=== PATIENT | female | born 1945 | race American Indian/Alaskan Native ===

== ENCOUNTER 2016-10-02 17:44 | Emergency (ER) | payer MEDICARE ==
[2016-10-02] MEDS ORDERED: CATAPRES ONE (18:52)
[2016-10-02] MEDS ORDERED: CATAPRES PO ONE (18:53)
[2016-10-02 19:48] LABS: Eosinophils % (Auto) 0.6 % (0.0-4.3); Hematocrit 39.2 % (30.3-42.9); Hemoglobin 12.5 gm/dl (10.1-14.3); Mean Corpuscular HGB Conc 32 % (30-34); Mean Corpuscular Hemoglobin 26 pg (28-32); Mean Corpuscular Volume 83 fl (79-97); Platelet Count 211 K/mm3 (140-440); Red Blood Count 4.73 M/mm3 (3.65-5.03); Red Cell Distribution Width 15.7 % (13.2-15.2); White Blood Count 6.9 K/mm3 (4.5-11.0)
[2016-10-02 20:06] LABS: BUN/Creatinine Ratio 21.25; Blood Urea Nitrogen 17 mg/dL (7-17); Calcium 9.6 mg/dL (8.4-10.2); Carbon Dioxide 27 mmol/L (22-30); Chloride 103.8 mmol/L (98-107); Glucose 111 mg/dL (65-100); Sodium 143 mmol/L (137-145)
[2016-10-02 20:08] LABS: Anion Gap 16 mmol/L
[2016-10-03 03:24] LABS: Alanine Aminotransferase 8 units/L (7-56); Albumin 4.3 g/dL (3.9-5); Albumin/Globulin Ratio 1.3 %; Alkaline Phosphatase 84 units/L (35-129); Bilirubin,Total 0.6 mg/dL (0.1-1.2); Total Protein 7.7 g/dL (6.3-8.2)
--- NOTE | 2016-10-03 03:24 | XRay Report ---
FINAL REPORT EXAM: XR CHEST 1V AP HISTORY: htn, leg edema, r/o chf TECHNIQUE: Single portable frontal view of the chest PRIORS: None FINDINGS: Lungs are clear. Heart is moderately enlarged. Normal pulmonary vasculature. No effusion or pneumothorax. Extensive dilated bowel seen in the upper abdomen. IMPRESSION: 1. No acute finding. Moderate cardiomegaly. 2. Dilated bowel in the upper abdomen. Consider abdomen series for further evaluation.
[2016-10-03 03:25] LABS: Bilirubin,Direct < 0.2 mg/dL (0-0.2); Bilirubin,Indirect 0.4 mg/dL
[2016-10-03 03:31] VITALS: BP 160/101
[2016-10-03] MEDS ORDERED: ROCEPHIN/NS 1 GM/50 ML 0 GM/0 ML BAG IV ONE (04:09)
--- NOTE | 2016-10-03 04:23 | XRay Report ---
FINAL REPORT PROCEDURE: XR ABDOMEN 2V TECHNIQUE: Abdominal radiograph, single supine AP view. HISTORY: dialated bowel loops COMPARISON: No prior studies are available for comparison. FINDINGS: Bowel gas pattern:There is a large amount of stool in the colon indicating constipation. There are air-filled distended loops of large and small bowel but no specific evidence of mechanical obstruction is seen. There is no fecal impaction. There is no bowel wall thickening.. Masses or calcifications:None. Bony structures:No significant abnormality. Other:There is no free air.. There is distended colon between the right lobe of the liver and the right hemidiaphragm. This is a normal variation. IMPRESSION: Constipation and bowel distention.
--- NOTE | 2016-10-03 04:50 | Emergency Department Report ---
ED Extremity Problem HPI - General Chief complaint: High BP Stated complaint: HIGH BLOOD PRESSURE Time Seen by Provider: 10/03/16 03:46 Source: patient Mode of arrival: Wheelchair Limitations: No Limitations - History of Present Illness Initial comments: 71-year-old female with a past history of hypertension presents to the hospital complains of lower extremity edema times several months. Patient's edema is gradually increasing. Patient has history of hypertension but has not been on meds or seen a physician within 2-3 years. She denies headache, chest pain, blurred vision, shortness of breath, nausea, vomiting, abdominal pain, constipation, or diarrhea. Severity scale (0 -10): 0 - Related Data Previous Rx's Medication Instructions Recorded Last Taken Type Lactulose [Cephulac] 20 gm PO QDAY PRN #4 dose 10/03/16 Unknown Rx Mineral Oil [Fleet Mineral Oil] 133 ml OH DAILY #2 bottle 10/03/16 Unknown Rx amLODIPine [Norvasc] 5 mg PO DAILY #30 tab 10/03/16 Unknown Rx Allergies Allergy/AdvReac Type Severity Reaction Status Date / Time No Known Allergies Allergy Unverified 10/02/16 18:53 ED Review of Systems ROS: Stated complaint: HIGH BLOOD PRESSURE Other details as noted in HPI Comment: All other systems reviewed and negative Other: Constitutional: No fevers chills Eyes: No eye pain visual changes ENT: No ear pain or throat pain Neck: Denies pain Respiratory: Denies cough wheezing shortness of breath Cardiovascular: Denies chest pain, palpitations, syncope GI: Denies abdominal pain : Denies dysuria Musculoskeletal: As per HPI Skin: Denies rash, lesions, erythema Neurologic: Denies headache, numbness, weakness Psychiatric: Denies suicidal ideation, hallucinations ED Past Medical Hx - Past Medical History Previous Medical History?: No - Social History Smoking Status: Current Some Day Smoker Substance Use Type: None - Medications Home Medications: Home Medications Medication Instructions Recorded Confirmed Last Taken Type Lactulose [Cephulac] 20 gm PO QDAY PRN #4 dose 10/03/16 Unknown Rx Mineral Oil [Fleet Mineral Oil] 133 ml OH DAILY #2 bottle 10/03/16 Unknown Rx amLODIPine [Norvasc] 5 mg PO DAILY #30 tab 10/03/16 Unknown Rx ED Physical Exam - General Limitations: No Limitations - Other Other exam information: General: No limitations, patient is alert in no acute distress Head exam: Atraumatic, normocephalic Eyes exam: Normal appearance ENT: Moist mucous membrane, normal oropharynx Neck exam: Normal inspection, full range of motion, no meningismus nontender Respiratory exam: Clear to auscultation bilateral, no wheezes, rales, crackles Cardiovascular: Normal rate and rhythm Abdomen: Soft, nondistended, and nontender, with normal bowel sounds, no rebound, or guarding Extremity: Chronic-appearing edema with 1-2+ edema of bilateral lower extremities. Patient has some scabbed wounds to bilateral lower leg and foot that appear noninfected. No warmth or erythema or drainage. No tenderness to palpation. Back: Normal Inspection, full range of motion, no tenderness Neurologic: Alert, oriented x3, cranial nerves intact, no motor or sensory deficit Psychiatric: normal affect, normal mood Skin: Warm, dry, intact ED Course Vital Signs 10/02/16 10/03/16 10/03/16 19:06 00:56 03:20 Temperature 98.5 F 98.2 F 97.9 F Pulse Rate 98 H 60 52 L Respiratory 20 18 13 Rate Blood Pressure 204/125 Blood Pressure 180/109 160/101 [Right] O2 Sat by Pulse 96 96 99 Oximetry - Reevaluation(s) Reevaluation #1: 10/03/16 04:49 Patient's BP improved with clonidine provider prior to my evaluation. ED Medical Decision Making - Lab Data Result diagrams: 10/02/16 19:34 10/02/16 19:34 Lab Results 10/02/16 10/02/16 10/02/16 Range/Units 19:34 19:34 19:34 WBC 6.9 (4.5-11.0) K/mm3 RBC 4.73 (3.65-5.03) M/mm3 Hgb 12.5 (10.1-14.3) gm/dl Hct 39.2 (30.3-42.9) % MCV 83 (79-97) fl MCH 26 L (28-32) pg MCHC 32 (30-34) % RDW 15.7 H (13.2-15.2) % Plt Count 211 (140-440) K/mm3 Lymph % (Auto) 18.8 (13.4-35.0) % Hayes % (Auto) 6.7 (0.0-7.3) % Eos % (Auto) 0.6 (0.0-4.3) % Baso % (Auto) 1.0 (0.0-1.8) % Lymph # 1.3 (1.2-5.4) K/mm3 Hayes # 0.5 (0.0-0.8) K/mm3 Eos # 0.0 (0.0-0.4) K/mm3 Baso # 0.1 (0.0-0.1) K/mm3 Seg Neutrophils % 72.9 H (40.0-70.0) % Seg Neutrophils # 5.0 (1.8-7.7) K/mm3 Sodium 143 (137-145) mmol/L Potassium 4.0 (3.6-5.0) mmol/L Chloride 103.8 (98-107) mmol/L Carbon Dioxide 27 (22-30) mmol/L Anion Gap 16 mmol/L BUN 17 (7-17) mg/dL Creatinine 0.8 (0.7-1.2) mg/dL Estimated GFR > 60 ml/min BUN/Creatinine Ratio 21.25 % Glucose 111 H (65-100) mg/dL Calcium 9.6 (8.4-10.2) mg/dL Total Bilirubin (0.1-1.2) mg/dL Direct Bilirubin (0-0.2) mg/dL Indirect Bilirubin mg/dL AST (5-40) units/L ALT (7-56) units/L Alkaline Phosphatase (35-129) units/L Troponin T 0.016 (0.00-0.029) ng/mL NT-Pro-B Natriuret Pep 136.0 (0-900) pg/mL Total Protein (6.3-8.2) g/dL Albumin (3.9-5) g/dL Albumin/Globulin Ratio % 10/02/16 Range/Units 19:34 WBC (4.5-11.0) K/mm3 RBC (3.65-5.03) M/mm3 Hgb (10.1-14.3) gm/dl Hct (30.3-42.9) % MCV (79-97) fl MCH (28-32) pg MCHC (30-34) % RDW (13.2-15.2) % Plt Count (140-440) K/mm3 Lymph % (Auto) (13.4-35.0) % Hayes % (Auto) (0.0-7.3) % Eos % (Auto) (0.0-4.3) % Baso % (Auto) (0.0-1.8) % Lymph # (1.2-5.4) K/mm3 Hayes # (0.0-0.8) K/mm3 Eos # (0.0-0.4) K/mm3 Baso # (0.0-0.1) K/mm3 Seg Neutrophils % (40.0-70.0) % Seg Neutrophils # (1.8-7.7) K/mm3 Sodium (137-145) mmol/L Potassium (3.6-5.0) mmol/L Chloride (98-107) mmol/L Carbon Dioxide (22-30) mmol/L Anion Gap mmol/L BUN (7-17) mg/dL Creatinine (0.7-1.2) mg/dL Estimated GFR ml/min BUN/Creatinine Ratio % Glucose (65-100) mg/dL Calcium (8.4-10.2) mg/dL Total Bilirubin 0.6 (0.1-1.2) mg/dL Direct Bilirubin < 0.2 (0-0.2) mg/dL Indirect Bilirubin 0.4 mg/dL AST 13 (5-40) units/L ALT 8 (7-56) units/L Alkaline Phosphatase 84 (35-129) units/L Troponin T (0.00-0.029) ng/mL NT-Pro-B Natriuret Pep (0-900) pg/mL Total Protein 7.7 (6.3-8.2) g/dL Albumin 4.3 (3.9-5) g/dL Albumin/Globulin Ratio 1.3 % - Radiology Data Radiology results: report reviewed Chest x-ray: No acute findings but distended loops of bowel noted Abdominal series x-ray: Constipation with bowel distention. - Medical Decision Making Pt she has chronic leg edema without pain or signs of infection. No signs of CHF at this time with negative chest x-ray and BNP. Patient does not have any chest pain with unremarkable EKG and negative cardiac enzymes. Patient be started on blood pressure medication, and was recommended for constipation, and close PMD follow-up for reevaluation - Differential Diagnosis CHF, renal failure, hypertensive emergency, liver failure Critical Care Time: No Critical care attestation.: If time is entered above; I have spent that time in minutes in the direct care of this critically ill patient, excluding procedure time. ED Disposition Clinical Impression: HTN (hypertension), Noncompliance with medication regimen, Chronic edema, Constipation Disposition: DISCHARGED TO HOME OR SELFCARE Is pt being admited?: No Does the pt Need Aspirin: No Condition: Stable Instructions: Hypertension (ED), Leg Edema (ED), Constipation (ED) Additional Instructions: It is very important you follow up very closely with a primary care doctor for reevaluation of blood pressure while on this new medication. It is likely that you will need an increased dose or an additional medication to adequately control your blood pressure. Your x-ray shows shows constipation with the stool mostly at the rectum and close to the end of the colon. Take Fleet enemas as prescribed and take the lactulose as needed for continued constipation. Return if symptoms worsen. Prescriptions: amLODIPine [Norvasc] 5 mg PO DAILY #30 tab Lactulose [Cephulac] 20 gm PO QDAY PRN #4 dose PRN Reason: Constipation Mineral Oil [Fleet Mineral Oil] 133 ml [place] DAILY #2 bottle Referrals: IRMA MCGILL MD, PHD [Staff Physician] - 3-[address] [facility] [Provider Group] - 3-5 Days Time of Disposition: 04:53
== END 2016-10-03 05:34 | disposition home or self-care (01) ==
LOC: ED 17:44
DX: I10 Essential (primary) hypertension (principal); R60.0 Localized edema; K59.00 Constipation, unspecified; Z91.14 Patient's other noncompliance with medication regimen; F17.200 Nicotine dependence, unspecified, uncomplicated
CPT/HCPCS: 36415; 71010; 74020; 80048; 80074; 83880; 84484; 85025; 93005; 93010; 99284; J0696